=== PATIENT | female | born 1970 | race Two or more races ===

== ENCOUNTER 2019-01-09 09:59 | Outpatient (CLI) | payer OTHER | END 2019-01-09 10:04 | disposition home or self-care (01) | LOC: SONOGRAMA 09:59 | DX: E04.1 Nontoxic single thyroid nodule (principal) ==

== ENCOUNTER → 2019-02-19 | Outpatient (CLI) | payer OTHER | END | disposition home or self-care (01) | LOC: SONOGRAMA 15:15 | DX: Z12.31 Encounter for screening mammogram for malignant neoplasm of breast (principal); N63.10 Unspecified lump in the right breast, unspecified quadrant; N63.20 Unspecified lump in the left breast, unspecified quadrant ==

== ENCOUNTER → 2019-06-05 14:48 | Outpatient (CLI) | payer OTHER | END | disposition home or self-care (01) | LOC: RAD 14:48 | DX: R07.89 Other chest pain (principal) ==

== ENCOUNTER 2023-01-18 13:22 | Outpatient (CLI) | payer OTHER | END 2023-01-18 13:39 | disposition home or self-care (01) | LOC: MAMO-SONO 13:22 | PROVIDERS: ATTEND Internal Medicine Endocrinology, Diabetes & Metabolism | DX: Z12.31 Encounter for screening mammogram for malignant neoplasm of breast (principal) ==